=== PATIENT | female | born 1955 | race Caucasian/White ===

== ENCOUNTER → 2016-07-13 | Outpatient (CLI) | payer MEDICARE, BC | LOC: BHSO 13:47 | DX: F31.73 Bipolar disorder, in partial remission, most recent episode manic (principal) ==

== ENCOUNTER → 2016-08-18 | Outpatient (CLI) | payer MEDICARE, BC | LOC: BHSO 14:44 | DX: F31.73 Bipolar disorder, in partial remission, most recent episode manic (principal) ==

== ENCOUNTER → 2016-09-30 | Outpatient (CLI) | payer MEDICARE, BC | LOC: BHSO 14:52 | DX: F31.73 Bipolar disorder, in partial remission, most recent episode manic (principal) ==

== ENCOUNTER → 2016-11-30 | Outpatient (CLI) | payer MEDICARE, BC | LOC: BHSO 14:47 | DX: F31.73 Bipolar disorder, in partial remission, most recent episode manic (principal) ==

== ENCOUNTER → 2017-01-20 | Outpatient (CLI) | payer MEDICARE, BC | LOC: BHSO 14:59 | DX: F33.1 Major depressive disorder, recurrent, moderate (principal) ==

== ENCOUNTER → 2017-04-18 | Outpatient (CLI) | payer MEDICARE, BC | LOC: BHSO 15:21 | DX: F31.73 Bipolar disorder, in partial remission, most recent episode manic (principal) | CPT/HCPCS: G0463 ==

== ENCOUNTER → 2017-07-18 | Outpatient (CLI) | payer MEDICARE, BC | LOC: BHSO 13:57 | DX: F31.81 Bipolar II disorder (principal) | CPT/HCPCS: G0463 ==

== ENCOUNTER → 2018-03-27 | Outpatient (CLI) | payer MEDICARE, BC | LOC: BHSO 14:02 | DX: F31.81 Bipolar II disorder (principal) | CPT/HCPCS: G0463 ==

== ENCOUNTER → 2018-05-17 | Outpatient (CLI) | payer MEDICARE, BC | LOC: BHSO 13:43 | DX: F31.81 Bipolar II disorder (principal) | CPT/HCPCS: G0463 ==

== ENCOUNTER → 2018-07-07 | Outpatient (CLI) | payer MEDICARE, BC | LOC: BHSO 14:38 | DX: F33.41 Major depressive disorder, recurrent, in partial remission (principal) | CPT/HCPCS: G0463 ==

== ENCOUNTER → 2018-08-09 | Outpatient (CLI) | payer MEDICARE, BC | LOC: BHSO 14:15 | DX: F33.41 Major depressive disorder, recurrent, in partial remission (principal) | CPT/HCPCS: G0463 ==

== ENCOUNTER 2018-09-01 13:59 | Day surgery (SDC) | payer MEDICARE, BC ==
[~2018-09-01] VITALS: Ht 152.4 cm; Wt 41.5 kg
[2018-09-01 14:35] VITALS: BP 103/51; PULSE 68; TEMP 97.9
[2018-09-01] MEDS ORDERED: EFFEXOR-XR150 MG PO (14:38)
[2018-09-01] MEDS ORDERED: SYNTHROID 0.10.15 MG PO (14:39)
[2018-09-01] MEDS ORDERED: PREMPRO 0.625/21 TAB PO (14:39)
[2018-09-01] MEDS ORDERED: BUSPIRONE HCL7.5 MG PO (14:40)
[2018-09-01] MEDS ORDERED: INDERAL 20MG20 MG PO (14:41)
[2018-09-01] MEDS ORDERED: PRAVACHOL80 MG PO (14:42)
[2018-09-01] MEDS ORDERED: DESYREL DIVIDO150 M1 PO (14:42)
[2018-09-01] MEDS ORDERED: MULTIPLE VITAMI1 TA5 PO (14:43)
[2018-09-01] MEDS ORDERED: VITAMIN D3400 I1 PO (14:44)
[2018-09-01] MEDS ORDERED: PRILOSEC 20MG20 MG PO (14:45)
[2018-09-01 15:25] VITALS: BP 100/49; PULSE 80; TEMP 97.8
--- NOTE | 2018-09-01 15:25 | NUR ---
Pt returned via cart to [facility]. Ambulated to recliner in bay with steady gait. Brother brought to room to visit. Pts VSS-see flowsheet. Pt given sprite, juice, pudding and crackers per requests "for everything to eat". Call light in reach. Denied needs or complaints.
[2018-09-01 15:40] VITALS: BP 103/55; PULSE 71
[2018-09-01 15:55] VITALS: BP 108/57; PULSE 71
--- NOTE | 2018-09-01 16:15 | NUR ---
Pt tolerated food and drink. VS remain stable. Dr Harper visited with pt and brother post procedure. Discharge teaching completed, both verbalized understanding. IV removed from right hand, cotton ball and coban applied. Pt requested to ambulate rather than be pushed in a wheelchair. Ambulated with pt to exit of facility for brother to drive pt home in private vehicle.
== END 2018-09-01 16:15 | disposition home or self-care (01) ==
LOC: SDCO 13:59
DX: K21.9 Gastro-esophageal reflux disease without esophagitis (principal); K44.9 Diaphragmatic hernia without obstruction or gangrene; K29.30 Chronic superficial gastritis without bleeding; K63.4 Enteroptosis; Z88.1 Allergy status to other antibiotic agents; Z88.8 Allergy status to other drugs, medicaments and biological substances; F32.9 Major depressive disorder, single episode, unspecified; F41.9 Anxiety disorder, unspecified; D50.9 Iron deficiency anemia, unspecified
CPT/HCPCS: J2250; J3010; J7030

== ENCOUNTER → 2018-10-11 | Outpatient (CLI) | payer MEDICARE, BC ==
[~2018-10-11] MED LIST: BUSPIRONE HCL7.5 MG PO; DESYREL DIVIDO150 M1 PO; EFFEXOR-XR150 MG PO; INDERAL 20MG20 MG PO; MULTIPLE VITAMI1 TA5 PO; PRAVACHOL80 MG PO; PREMPRO 0.625/21 TAB PO; PRILOSEC 20MG20 MG PO; SYNTHROID 0.10.15 MG PO; VITAMIN D3400 I1 PO
== END ==
LOC: BHSO 14:18
DX: F33.42 Major depressive disorder, recurrent, in full remission (principal)
CPT/HCPCS: G0463

== ENCOUNTER → 2018-12-26 | Outpatient (CLI) | payer MEDICARE, BC | LOC: BHSO 14:16 | DX: F33.41 Major depressive disorder, recurrent, in partial remission (principal) | CPT/HCPCS: G0463 ==

== ENCOUNTER → 2019-07-05 | Outpatient (CLI) | payer MEDICARE, BC | LOC: BHSO 14:57 | DX: F41.1 Generalized anxiety disorder (principal) | CPT/HCPCS: G0463 ==

== ENCOUNTER → 2019-09-12 | Outpatient (CLI) | payer MEDICARE, BC | LOC: BHSO 15:05 | DX: F33.42 Major depressive disorder, recurrent, in full remission (principal) | CPT/HCPCS: G0463 ==

== ENCOUNTER → 2019-09-24 | Outpatient (CLI) | payer SELFPAY | LOC: BHSO 14:53 | DX: F31.81 Bipolar II disorder (principal) ==

== ENCOUNTER → 2019-10-02 | Outpatient (CLI) | payer SELFPAY | LOC: BHSO 15:00 | DX: F31.81 Bipolar II disorder (principal) ==

== ENCOUNTER → 2019-10-11 | Outpatient (CLI) | payer SELFPAY | LOC: BHSO 15:03 | DX: F31.11 Bipolar disorder, current episode manic without psychotic features, mild (principal) ==

== ENCOUNTER → 2019-10-12 | Outpatient (CLI) | payer MEDICARE, BC | LOC: BHSO 15:04 | DX: F33.41 Major depressive disorder, recurrent, in partial remission (principal) | CPT/HCPCS: G0463 ==

== ENCOUNTER → 2019-10-18 | Outpatient (CLI) | payer SELFPAY | LOC: BHSO 13:02 | DX: F31.11 Bipolar disorder, current episode manic without psychotic features, mild (principal) ==

== ENCOUNTER → 2019-10-31 | Outpatient (CLI) | payer SELFPAY | LOC: BHSO 14:43 | DX: F31.11 Bipolar disorder, current episode manic without psychotic features, mild (principal) ==

== ENCOUNTER → 2019-11-09 | Outpatient (CLI) | payer SELFPAY | LOC: BHSO 11:04 | DX: F31.11 Bipolar disorder, current episode manic without psychotic features, mild (principal) ==

== ENCOUNTER → 2019-11-13 | Outpatient (CLI) | payer MEDICARE, BC | LOC: BHSO 14:30 | DX: F31.81 Bipolar II disorder (principal) | CPT/HCPCS: G0463 ==

== ENCOUNTER → 2019-11-16 | Outpatient (CLI) | payer SELFPAY | LOC: BHSO 14:48 | DX: F31.11 Bipolar disorder, current episode manic without psychotic features, mild (principal) ==

== ENCOUNTER → 2019-11-23 | Outpatient (CLI) | payer SELFPAY | LOC: BHSO 14:48 | DX: F31.81 Bipolar II disorder (principal) ==

== ENCOUNTER → 2019-12-18 | Outpatient (CLI) | payer SELFPAY | LOC: BHSO 13:51 | DX: F31.75 Bipolar disorder, in partial remission, most recent episode depressed (principal) | CPT/HCPCS: G0463 ==

== ENCOUNTER → 2019-12-18 | Outpatient (CLI) | payer MEDICARE, BC | LOC: BHSO 13:58 | DX: F31.11 Bipolar disorder, current episode manic without psychotic features, mild (principal) ==

== ENCOUNTER → 2020-01-01 | Outpatient (CLI) | payer SELFPAY | LOC: BHSO 13:40 | DX: F31.11 Bipolar disorder, current episode manic without psychotic features, mild (principal) ==

== ENCOUNTER → 2020-01-17 | Outpatient (CLI) | payer SELFPAY | LOC: BHSO 14:59 | DX: F31.75 Bipolar disorder, in partial remission, most recent episode depressed (principal) | CPT/HCPCS: G0463 ==

== ENCOUNTER → 2020-01-17 | Outpatient (CLI) | payer MEDICARE, BC | LOC: BHSO 14:42 | DX: F31.81 Bipolar II disorder (principal) ==